=== PATIENT | male | born 1965 | race Caucasian/White ===

== ENCOUNTER 2017-09-15 12:07 | Emergency (ER) | END 2017-09-15 14:01 | disposition home or self-care (01) ==

== ENCOUNTER 2017-11-01 16:33 | Emergency (ER) | END 2017-11-01 20:39 | disposition home or self-care (01) ==

== ENCOUNTER 2018-02-25 10:41 | Emergency (ER) | payer OTHER ==
[~2018-02-25] VITALS: Ht 170.2 cm; Wt 80.0 kg
[~2018-02-25 10:41] MED LIST: HYDR-3498 PO; HYDR-4011 PO; IBUP-1542 PO; IBUP200C11; NAPR-985 PO; P EP
[2018-02-25 10:56] VITALS: Ht 170.2 cm; Wt 80.0 kg
[2018-02-25] MEDS ORDERED: ONDANSETRON 4 MG INJ IV STA (11:07)
[2018-02-25] MEDS ORDERED: HYDROmorphONE 1 MG/ML SYG IV STA (11:07)
[2018-02-25] MEDS ORDERED: SOD CHLORIDE 0.9% 1,000 ML IV STA (11:07)
[2018-02-25] MEDS ORDERED: PIPER-TAZO 3.375 GM IV (PMX) 100 ML IVPB STA (11:52)
[2018-02-25] MEDS ORDERED: SODIUM CHLORIDE 0.9% 1L BAG IV* STA (11:52)
--- NOTE | 2018-02-25 11:55 | ERD ---
ER Documentation Chief Complaint Chief Complaint Abdominal pain with nausea since this morning HPI 53-year-old male with history of hyperlipidemia presents the ED complaining of a 1 day history of severe, generalized, crampy, nonradiating abdominal pain. Denies nausea, vomiting, diarrhea or constipation. No hematemesis, hematochezia or melanotic stools. Denies chest pain, palpitations or shortness of breath. No cough or hemoptysis. No relieving or exacerbating factors. No fevers or chills. Patient reports a history of similar symptoms which was ultimately diagnosed as due to "polyps". ROS All systems reviewed and are negative except as per history of present illness. Medications Home Meds Discontinued Reported Medications Ibuprofen* (Advil*) 200 Mg Capsule 04/11/13 P-Ephed Hcl/Acetaminophen (Sudafed Sinus Headache Caplet) 1 Tab Tablet 04/11/13 Discontinued Scripts Ibuprofen* (Motrin*) 600 Mg Tab, 600 MG PO Q6, #30 TAB Prov:JUDITH VALDEZ 11/01/17 Naproxen* (Naprosyn*) 500 Mg Tablet, 500 MG PO BID PRN for PAIN AND/OR INFLAMMATION, #30 TAB Prov:MAICOL HWANG PA-C 09/15/17 Hydrocodone/Acetaminophen (G[place]ay 5-325 Tablet) 1 Each Tablet, 1 TAB PO Q6H PRN for PAIN, #7 TAB Prov:MAICOL HWANG PA-C 09/15/17 Hydrocodone Bit-Acetaminophen* (Galloway*) 5-325 Mg Tab, 1 TAB PO BID PRN for PAIN, #10 TAB 0 Refills Prov:DARREN CHAVEZ PA-C 01/05/15 Allergies Allergies: Coded Allergies: No Known Allergy (Unverified , 01/05/15) PMhx/Soc Reviewed in chart. As per HPI. History of Surgery: Yes (APPENDECTOMY, TONSILLECTOMY) Anesthesia Reaction: No Hx Neurological Disorder: No Hx Respiratory Disorders: No Hx Cardiac Disorders: Yes (htn) Hx Psychiatric Problems: No Hx Miscellaneous Medical Probl: Yes (POLYP REMOVAL ) Hx Alcohol Use: Yes Hx Substance Use: No Hx Tobacco Use: Yes (1 pack per day x 40 years) Smoking Status: Current every day smoker FmHx No stroke or cancer Physical Exam Vitals Vital Signs Date Temp Pulse Resp B/P (MAP) Pulse Ox O2 O2 Flow FiO2 Time Delivery Rate 02/25/18 98.6 87 17 130/82 100 Room Air 16:22 (98) 02/25/18 98.6 87 17 128/87 100 Room Air 15:33 (101) 02/25/18 83 17 134/90 98 Room Air 13:32 (105) 02/25/18 64 17 134/90 96 Room Air 11:34 (105) 02/25/18 97.5 81 20 140/108 100 10:56 (119) Physical Exam Const: No acute distress Head: Atraumatic Eyes: Normal Conjunctiva ENT: Normal External Ears, Nose and Mouth. Neck: Full range of motion. No meningismus. Resp: Clear to auscultation bilaterally Cardio: Regular rate and rhythm, no murmurs Abd: Soft, non tender, non distended. Normal bowel sounds Skin: No petechiae or rashes Back: No midline or flank tenderness Ext: No cyanosis, or edema Neur: Awake and alert Psych: Normal Mood and Affect Result Diagram: 02/25/18 1105 02/25/18 1105 Results 24 hrs Laboratory Tests Test 02/25/18 11:05 02/25/18 12:15 02/25/18 14:27 White Blood Count 16.9 10^3/ul Red Blood Count 5.37 10^6/ul Hemoglobin 15.8 g/dl Hematocrit 48.0 % Mean Corpuscular Volume 89.4 fl Mean Corpuscular Hemoglobin 29.4 pg Mean Corpuscular 32.9 g/dl Hemoglobin Concent Red Cell Distribution Width 14.4 % Platelet Count 186 10^3/UL Mean Platelet Volume 10.7 fl Immature Granulocytes % 0.500 % Neutrophils % 77.6 % Lymphocytes % 16.4 % Monocytes % 3.8 % Eosinophils % 1.2 % Basophils % 0.5 % Nucleated Red Blood Cells % 0.0 /100WBC Immature Granulocytes # 0.090 10^3/ul Neutrophils # 13.1 10^3/ul Lymphocytes # 2.8 10^3/ul Monocytes # 0.7 10^3/ul Eosinophils # 0.2 10^3/ul Basophils # 0.1 10^3/ul Nucleated Red Blood Cells # 0.0 10^3/ul Prothrombin Time 11.0 Sec Prothrombin Time Ratio 0.9 INR International 0.78 Normalized Ratio Activated Partial Thromboplast 20.7 Sec Time Sodium Level 139 mmol/L Potassium Level 4.9 mmol/L Chloride Level 103 mmol/L Carbon Dioxide Level 24 mmol/L Anion Gap 12 Blood Urea Nitrogen 21 mg/dl Creatinine 0.84 mg/dl Est Glomerular Filtrat > 60 mL/min Rate mL/min Glucose Level 139 mg/dl Lactic Acid Level 2.7 mmol/L Calcium Level 10.0 mg/dl Total Bilirubin 0.2 mg/dl Direct Bilirubin 0.00 mg/dl Indirect Bilirubin 0.2 mg/dl Aspartate Amino 26 IU/L Transf (AST/SGOT) Alanine 30 IU/L Aminotransferase (ALT/SGPT) Alkaline Phosphatase 76 IU/L Troponin I < 0.012 ng/ml Total Protein 7.8 g/dl Albumin 4.6 g/dl Globulin 3.20 g/dl Albumin/Globulin Ratio 1.43 Lipase 99 U/L Urine Color YELLOW Urine Clarity CLEAR Urine pH 5.0 Urine Specific [place] 1.033 Urine Ketones NEGATIVE mg/dL Urine Nitrite NEGATIVE mg/dL Urine Bilirubin NEGATIVE mg/dL Urine Urobilinogen NEGATIVE mg/dL Urine Leukocyte Esterase NEGATIVE Nona/ul Urine Microscopic RBC 0 /HPF Urine Microscopic WBC 0 /HPF Urine Hemoglobin 2+ mg/dL Urine Glucose NEGATIVE mg/dL Urine Total Protein NEGATIVE mg/dl POC Venous Lactate 1.5 mmol/L Current Medications Medications Dose Sig/William Start Time Status Last (Trade) Ordered Route PRN Stop Time Admin Dose Reason Admin Sodium 1,000 ml @ Q1H STAT 02/25/18 DC 02/25/18 Chloride 1,000 mls/hr IV 11:07 11:14 02/25/18 12:06 1 mg ONCE STAT 02/25/18 DC 02/25/18 Hydromorphone IV 11:07 11:15 HCl 02/25/18 11:09 (Dilaudid) Ondansetron 4 mg ONCE STAT 02/25/18 DC 02/25/18 HCl (Zofran IV 11:07 11:14 Inj) 02/25/18 11:09 Sodium 2,400 ml BOLUS OVER 2 02/25/18 DC 02/25/18 Chloride HOURS STAT 11:52 12:48 (NS) IV* 02/25/18 11:56 Piperacillin 100 ml @ ONCE STAT 02/25/18 DC 02/25/18 Sod/ 200 mls/hr IVPB 11:52 12:49 Tazobactam 02/25/18 12:21 Sod Iohexol 100 ml @ ud STK-MED 02/25/18 DC 02/25/18 ONCE .ROUTE 11:57 12:12 02/25/18 11:58 Sodium 100 ml @ ud STK-MED 02/25/18 DC 02/25/18 Chloride ONCE .ROUTE 11:57 12:12 02/25/18 11:58 IV Flush 10 ml STK-MED 02/25/18 DC 02/25/18 (NS 10 ml) ONCE .ROUTE 11:57 12:13 02/25/18 11:58 1 mg ONCE STAT 02/25/18 DC 02/25/18 Hydromorphone IV 14:57 15:10 HCl 02/25/18 14:58 (Dilaudid) Ketorolac 15 mg ONCE STAT 02/25/18 DC 02/25/18 Tromethamine IV 14:57 15:10 (Toradol) 02/25/18 14:58 Famotidine 20 mg ONCE ONCE 02/25/18 DC 02/25/18 (Pepcid Iv) IV 15:00 15:09 02/25/18 15:01 Procedures/MDM DOCUMENTS REVIEWED: ED nurse, prior records EKG: Time: 1214. Sinus rhythm. Ventricular rate 82. Normal MN and QRS. Septal Q waves in leads V1 and V2. No acute ST segment elevation or depression. No ectopy. My Interpretation IMAGING: PROCEDURE: XR Chest AP portable CLINICAL INDICATION: Sepsis TECHNIQUE: An AP portable radiograph of the chest was submitted. COMPARISON: 01/03/2015 FINDINGS: Support Hardware: None Cardiovascular: The cardiovascular silhouette appears unremarkable. Lung Rangel: Discoid atelectasis has developed within the left mid lung zone and to a lesser extent within the right mid lung zone and the right lung base. No infiltrate or nodule is evident. Pleural Spaces: No pneumothorax or pleural effusion is identified. Osseous Structures: The osseous structures appear intact. Soft Tissues: The soft tissues appear unremarkable. IMPRESSION: 1. Discoid atelectasis is seen in the left mid lung zone and to a lesser extent within the right mid lung zone and right lung base. 2. Otherwise, stable and unremarkable portable chest. Physician Lissette Date Time Electronically viewed and signed by Physician Lissette on 02/25/2018 12:34 RH/ AMENDMENT: 02/25/2018 1:52:33 PM Jairon Garsia M.d Results called to Braulio Turner at 02/25/2018 1:52:27 PM. PROCEDURE: CT Angiogram abdomen and pelvis CLINICAL INDICATION: Abdominal pain. Clinical concern for mesenteric ischemia. TECHNIQUE: CT angiogram of the abdomen and pelvis. The patient received 100 ml intravenous Omnipaque-300 the contrast. 2-D coronal reformatted images and 3-D volumetric rendered images were obtained from the axial source images. DICOM images are available. CTDI: 21.61 mGy and DLP: 13 27.72 mGy.cm. One or more of the following dose reduction techniques were utilized: Automated exposure control, adjustment of the mA and/or kV according to patient size, use of iterative reconstruction technique. COMPARISON: No prior studies available for comparison. FINDINGS: CT angiogram: Normal caliber abdominal aorta with atherosclerotic calcifications. No aortic dissection, aneurysm, pseudoaneurysm, or intramural hematoma identified. Normal caliber celiac artery, superior mesenteric artery and bilateral renal arteries without a significant stenosis. The inferior mesenteric artery is patent. Normal caliber bilateral common, internal and external iliac arteries without a significant stenosis. Normal caliber bilateral common femoral arteries without a significant stenosis. Normal caliber visualized proximal bilateral superficial femoral and profunda femoral arteries without significant stenosis. CT: Pulmonary: Bilateral lower lobe ground-glass consolidations. No pleural effusion. Cardiac: Normal heart size. Liver: Normal appearance of the liver. No focal enhancing liver mass. No intrahepatic or extrahepatic biliary dilatation. Gallbladder: Normal appearance of the gallbladder without stones or wall thickening. Spleen: Normal size and enhancement. Pancreas: Normal enhancement without ductal dilation. Adrenal glands: Normal morphology without thickening or mass. Genitourinary: Normal symmetric enhancement of the kidneys. No renal stone or hydronephrosis. Normal appearance of the bladder. Gastrointestinal: Small sliding-type hiatal hernia. Stomach is partially distended. Nondilated small bowel and colon. Appendix is not visualized. No secondary signs of appendicitis.. Peritoneum: Fat containing umbilical hernia. No peritoneal free fluid or free air. No adenopathy. Pelvic organs: No pelvic mass. Normal appearance the prostate gland. Osseous structures: No suspicious osseous lesions. Mild degenerative changes of the spine with disc space narrowing L5/S1. IMPRESSION: 1. Bilateral lower lobe ground-glass consolidations may represent pulmonary edema or infection. 2. Atherosclerotic calcifications without a significant stenosis in the mesenteric arteries. 3. Small sliding-type hiatal hernia. RPTAT:AAJJ Physician Tangela Date Time Electronically viewed and signed by Molly Garsia Physician on 02/25/2018 13:52 MH/ MEDICAL DECISION MAKIN-year-old male with history of hyperlipidemia presents the ED complaining of a 1 day history of severe, generalized, crampy, nonradiating abdominal pain. CBC reveals leukocytosis but no anemia or thr ombocytopenia. Chemistry remarkable for elevated BUN consistent with dehydration but no electrolyte abnormalities. LFTs are unremarkable. Lipase is normal. Lactate is elevated millimoles per liter at 2.7 leukocytosis but no other criteria for systemic inflammatory response syndrome. But repeat is 1.5 mmol/L. CT angiogram of the abdomen and pelvis to evaluate for an acute intra- abdominal process including but not limited to appendicitis, diverticulitis, bowel obstruction, obstructive uropathy, biliary disease, pancreatitis, mesenteric ischemia abdominal aortic aneurysm and neoplasm reveals hiatal hernia but no acute intra-abdominal process. Patient treated with intravenous hydration and antibiotics after cultures. Despite intravenous opiates, antiemetics and H2 blockers patient continues to have intractable pain; will require admission for GI consultation, further evaluation and management for which he will be transferred to [facility]. CALLS/CONSULTS: Time: 1355, Dr. Ospina. Accepts patient for transfer to [facility]. Departure Diagnosis: Primary Impression: Acute generalized abdominal pain Additional Impressions: Intractable abdominal pain Elevated lactic acid level Condition: Serious (Stable for transfer) BRAULIO TURNER MD Feb 25, 2018 11:55
[2018-02-25] MEDS ORDERED: SOD CHLORIDE 0.9% 100 ML ONE (11:57)
[2018-02-25] MEDS ORDERED: IOHEXOL 100 ML ONE (11:57)
[2018-02-25] MEDS ORDERED: KETOROLAC 15 MG INJ IV STA (14:57)
[2018-02-25] MEDS ORDERED: HYDROmorphONE 2 MG/ML SYG IV STA (14:57)
[2018-02-25] MEDS ORDERED: FAMOTIDINE 20 MG INJ IV ONE (15:00)
[2018-02-25 16:22] VITALS: BP 130/82; PULSE 87; RESP 17
== END 2018-02-25 16:26 | disposition left against medical advice (07) ==
LOC: E/R 10:41
DX: R10.84 Generalized abdominal pain (principal); R74.0 Nonspecific elevation of levels of transaminase and lactic acid dehydrogenase [LDH]; F17.210 Nicotine dependence, cigarettes, uncomplicated
CPT/HCPCS: 36415; 71045; 75635; 80053; 81001; 83605; 83690; 84484; 85025; 85610; 85730; 87040; 87086; 93005; 96365; 96375; 96376; J1170; J1885; J2405; J2543; J7030; Q9967; Z7502; Z7610